=== PATIENT | male | born 1985 | race Caucasian/White ===

== ENCOUNTER 2019-09-23 22:06 | Emergency (ER) | payer BC ==
[~2019-09-23] VITALS: Ht 165.1 cm; Wt 95.0 kg
[~2019-09-23 22:06] MED LIST: CEPH-443 PO; NAPR-985 PO; SULF1TAB31 PO
[2019-09-23 22:17] VITALS: Ht 165.1 cm; Wt 95.0 kg
[2019-09-23] MEDS ORDERED: PIPER-TAZO 3.375 GM IV (PMX) 100 ML IVPB ONE (23:30)
[2019-09-24] MEDS ORDERED: IOHEXOL 300MG/ML 150 ML BTL ONE (00:54)
[2019-09-24] MEDS ORDERED: SOD CHLORIDE 0.9% 100 ML ONE (00:54)
[2019-09-24] MEDS ORDERED: KETOROLAC 30 MG INJ IV STA (01:16)
[2019-09-24 02:43] VITALS: BP 15/90; PULSE 91; RESP 16
== END 2019-09-24 02:44 | disposition home or self-care (01) ==
LOC: FTE 22:06
DX: S91.331A Puncture wound without foreign body, right foot, initial encounter (principal); F17.210 Nicotine dependence, cigarettes, uncomplicated; L03.115 Cellulitis of right lower limb; W45.0XXA Nail entering through skin, initial encounter; Y92.9 Unspecified place or not applicable
CPT/HCPCS: 73700; 80053; 85025; 87040; 96374; 96375; 99285; J1885; J2543; Q9967